=== PATIENT | male | born 1980 | race Caucasian/White ===

== ENCOUNTER 2020-02-17 15:10 | Emergency (ER) | payer OTHER, SELFPAY ==
[2020-02-17 15:25] VITALS: BP 136/75; RESP 16; TEMP 37; O2SAT 99
--- NOTE | 2020-02-17 15:26 | ED.URI ---
HPI - URI/Sore Throat General Chief Complaint: Upper Respiratory Infection Stated Complaint: Ear problems/sinus infection Time Seen by Provider: 02/17/20 15:28 Source: patient and RN notes reviewed Mode of arrival: ambulatory Limitations: no limitations History of Present Illness HPI Narrative: 39-year-old male who presents to [facility] care with complaints of ears feeling full, sore throat, postnasal drainage for 2 week duration with no fever but did have a cough last week and his primary care physician treated him with steroids which has resolved the cough. Patient has postnasal drainage with throat red, uvula enlarged but midline. patient denies any fevers, chills, or sweats.He reports that he has been wearing nicotine patch to try to quit tobacco use. Patient states that he has been taking Claritin and Sudafed for his symptoms.He reports that he has history of sinus infections MD elicited complaint: cough, rhinorrhea, nasal congestion and sinus pain Pertinent past history: sinusitis Onset (ago): week(s) (2) Pain scale (0-10): 4 Able to tolerate fluids by mouth: Yes Relieving factors: other Related Data Allergies Allergy/AdvReac Type Severity Reaction Status Date / Time amoxicillin Allergy Unknown Verified 02/17/20 15:36 Review of Systems Review of Systems: Narrative: CONSTITUTIONAL: Denies fever, chills, or sweats. EYES: Denies visual changes, redness, or discharge. ENT: Positive rhinorrhea, congestion, sore throat, ears feel full. CARDIOVASCULAR: Denies chest pain, palpitations, or edema. RESPIRATORY: Resolved cough denies any dyspnea. GASTROINTESTINAL: Denies abdominal pain, nausea, vomiting, or diarrhea. GENITOURINARY: Denies dysuria or hematuria. SKIN: Denies rash or itching. MUSCULOSKELETAL: Denies back pain, joint pain, or myalgia. NEUROLOGIC: Denies headache, numbness, or weakness. PSYCHIATRIC: Denies anxiety or depression. All systems reviewed & are unremarkable except as noted in HPI and below PMFSH Past Medical History Medical History (Updated 02/18/20 @ 12:08 by Eleanor Hayward NP) Sinusitis Social History Social History (Updated 02/18/20 @ 12:09 by Eleanor Hayward NP) Smoking packs per day: 1 Smoking cigarettes per day: 20.0 Years smoked: 10 Smoking pack-years: 10.00 Smoking status: Current every day smoker Alcohol intake: current Alcohol use details: social Substance use: never Living arrangements: with family Gender identity (if verbalized by the patient): Male Comments At time of signature, agree with nursing past medical, surgical, social history. There is no relevant family history pertinent to the presenting complaint Exam Narrative: Exam Narrative: GENERAL: Well-appearing, well-nourished, and in no acute distress. HEAD: Normocephalic, atraumatic. EYES: PERRLA and EOMI. ENT: Nares red, clear rhinorrhea no epistaxis. Mucous membranes moist.TM's normal with dull light reflex, Throat red with uvula red and swollen, is midline, post nasal drainage present NECK: Supple.Lymphadenopathy CHEST: Clear to auscultation. No respiratory distress.SAO2 99% on room air HEART: Regular rate and rhythm. No murmur heard. Normal peripheral pulses. ABDOMEN: Soft, nontender, nondistended, normal active bowel sounds. EXTREMITIES: Normal range of motion. No edema. SKIN: Warm, dry, no rash. NEURO: No focal deficits. Alert and oriented x3. Course Vital Signs Vital signs: Vital Signs Temperature 37.0 C 02/17/20 15:25 Respiratory Rate 16 02/17/20 15:25 Blood Pressure 136/75 02/17/20 15:25 Pulse Oximetry 99 02/17/20 15:25 Temperature 37.0 C 02/17/20 15:25 Respiratory Rate 16 02/17/20 15:25 Blood Pressure 136/75 02/17/20 15:25 Pulse Oximetry 99 02/17/20 15:25 MDM - URI/Sore Throat Differential Diagnosis Differential diagnosis: Likely upper respiratory infection, sinusitis, viral infection and pharyngitis Medical Records Attestation: I reviewed the patien
== END 2020-02-17 16:00 | disposition home or self-care (01) ==
PROVIDERS: Emergency Provider Registered Nurse; PCP Family Medicine
DX: J32.9 Chronic sinusitis, unspecified (principal); F17.210 Nicotine dependence, cigarettes, uncomplicated
CPT/HCPCS: 87081; 87880; 99203; G0463